=== PATIENT | female | born 1990 | race Caucasian/White ===

== ENCOUNTER 2021-08-20 16:56 | Inpatient (IN) | payer MEDICAID, SELFPAY ==
[2021-08-20 17:04] VITALS: BMI 20.1
[2021-08-20 17:09] VITALS: BP 123/84; PULSE 87; RESP 17; TEMP 36.7; O2SAT 98
--- NOTE | 2021-08-20 17:40 | PC.ADMIT ---
[address] Admission Note: The patient,Fariba Flores,31 y/o, was given written information regarding hospital policies, unit procedures and contact persons. Patient's smoking status: . PT ADMITTED FROM [facility]. ADMITTED TO NPU VIA AMBULANCE AT 1700. PT STATES I'M HERE BECAUSE MY BF THOUGHT I OVERDOSED OFF MAGNESIUM AND I DID NOT. WHEN ASKED IF THE OVERDOSE WAS INTENTIAL PT STATES, NO I WAS JUST TRYING TO POOP. PT REPORTS SHE HAS NO USED DRUGS OR ALCOHOL FOR 9 YEARS. PT COMPLETED A DRUG REHAB 9 YEARS AGO AT [facility] IN [facility] AND PT STATES SHE HAS BEEN CLEAN SINCE. UDS + FOR METHAMPHETAMINES. PT HAS NO KNOWN DRUG ALLERGIES AND TAKES NO MEDICATIONS. PT DOES REPORT SHE HAS BATTLED WITH DEPRESSION WHEN HER SON WAS TAKEN AWAY YEARS AGO DUE TO HER OVERDOSING THE 14 MONTH OLD ON METH,HEROINE AND OXYCODONE. SKIN ASSESSMENT REVEALS BILATERAL BRUISING TO ARMS FROM IV STICKS AND A BRUISE TO THE LEFT INNER THIGH. ORIENTATED TO UNIT. DENIES PAIN. DENIES SI/HI AND AVH AT THIS TIME. ALL QUESTIONS ANSWERED AND SUPPORT VOICED.
[2021-08-20] MEDS: nicotine 2 mg Gum BUCCAL ×2 (18:24→20:27)
[2021-08-20 20:52] VITALS: BP 123/85; PULSE 81; RESP 17; TEMP 36.5; O2SAT 100
[2021-08-21 06:00] VITALS: BP 101/64; PULSE 70; RESP 16; TEMP 36.9; O2SAT 95
[2021-08-21] MEDS: nicotine 2 mg Gum BUCCAL ×3 (06:29→20:02)
[2021-08-21] MEDS: nicotine 21 mg Patch 1 PATCH TRANSDERMA (08:00)
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
[2021-08-21 14:00] VITALS: BP 115/76; PULSE 91; RESP 20; TEMP 36.6; O2SAT 98
[2021-08-21 19:38] VITALS: BP 122/82; PULSE 100; RESP 17; TEMP 36.4; O2SAT 99
[2021-08-22 06:00] VITALS: BP 115/78; PULSE 81; RESP 16; TEMP 36.4; O2SAT 99
[2021-08-22] MEDS: nicotine 2 mg Gum BUCCAL ×5 (08:24→19:51)
[2021-08-22 14:00] VITALS: BP 114/74; PULSE 81; RESP 18; TEMP 36.6; O2SAT 100
--- NOTE | 2021-08-22 14:38 | P.NPUPN_ITS ---
Subjective NPU Subjective: She says she slept well last night. She continues to deny any depression or suicidal ideation. She is wants to get home to her family. Mental Status Exam MSE Comments: This is a thin 31-year-old female who appears approximately her stated age and is in no acute distress. She is pleasant and cooperative with the evaluation. She had good eye contact. Her grooming is fair and she is dressed in hospital scrubs. psychomotor activity normal. Speech is at a regular rate and rhythm, normal volume, good articulation, not pressured. Alert, oriented X3 Attention and concentration appear to be normal. Memory is intact Mood is good other than unhappy about being here. Affect is mildly dysphoric. Thought process is logical and goal-directed. Thought content: Denies auditory and visual hallucinations. No delusions or paranoia are noted. No current suicidal ideation. He denies homicidal ideation. Fund of knowledge is average. Insight and judgment appear to be fair. Impulse control is appears to be good so far in the hospital.. Cognition: Patient Appearance: Appropriate Ability to Follow Directions: Good Patient Orientation (long list): Person, Place, Name, Age, Birthday, Month and Year Comprehension Ability: Understands Concepts Hallucination Type: None Delusion Description: Not Present Thought Process: Appropriate Affect: Affect Description: Calm Behavior: Patient Behavior: Cooperative Speech Pattern: Clear Vitals/I&O/Wt Last Vital Signs Temp 97.6 F 08/22/21 06:00 Pulse 81 08/22/21 06:00 Resp 16 08/22/21 06:00 BP 115/78 08/22/21 06:00 Pulse Ox 99 08/22/21 06:00 Weight last 48 hrs Weight 56.699 kg A&P Assessment and plan (1) Suicide attempt: Status: Acute (2) Major depressive disorder: Status: Acute (3) Methamphetamine abuse: Status: Acute Plan This is a 31-year-old female who reported to the emergency room that she had overdosed on magnesium in order to harm herself but now denies it. Positive for methamphetamine but denies recent use. Plan: 1. We will observe only on as needed medications for now 2. Continue every 15 minute checks for safety. 3. Encourage individual, group and milieu therapies. 4. Encourage sober living treatment after discharge at the highest level of care to which she is willing to commit. 5. We will monitor for safety for herself in the community prior to discharge. Involuntary Hold Information 96 Hour Hold: 96 Hour Involuntary Admission: Yes 96 Hour Hold Ending Date: 08/24/21 96 Hour Hold Ending Time: 17:00 Attestations NPU Medical Necessity Statement*: Inpatient hospitalization is medically necessary and the clinically appropriate intervention at this time. We will initiate medications and make changes as indicated. Coding Level of Care Code Acute Manager Of Case for [facility] Fwd Diagnoses Suicide attempt T14.91XA Major depressive disorder F32.9 Methamphetamine abuse F15.10
[2021-08-22 19:53] VITALS: BP 116/73; PULSE 104; RESP 18; TEMP 36.5; O2SAT 96
[2021-08-23 06:00] VITALS: BP 100/61; PULSE 75; RESP 16; TEMP 36.6; O2SAT 97
[2021-08-23] MEDS: nicotine 2 mg Gum BUCCAL (06:54)
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
[2021-08-23] MEDS: nicotine 21 mg Patch 1 PATCH TRANSDERMA (08:58)
[2021-08-23 09:10] VITALS: BP 100/61; PULSE 75; RESP 16; TEMP 36.6; O2SAT 97
== END 2021-08-23 10:02 | disposition home or self-care (01) | DRG 918 ==
PROVIDERS: Admitting Provider Psychiatry & Neurology Psychiatry; Visit Provider Psychiatry & Neurology Psychiatry
DX: T56.892A Toxic effect of other metals, intentional self-harm, initial encounter (principal); F15.10 Other stimulant abuse, uncomplicated; F32.9 Major depressive disorder, single episode, unspecified
CPT/HCPCS: 97150; 97165